=== PATIENT | male | born 1995 | race Caucasian/White ===

== ENCOUNTER 2022-08-21 13:00 | Emergency (ER) | payer OTHER ==
[~2022-08-21] VITALS: Ht 175.3 cm; Wt 77.3 kg
[2022-08-21 13:18] VITALS: BP 127/71
[2022-08-21 20:34] LABS: COVID AG,FIA SOURCE NASOPHARYNGEAL
[2022-08-21 21:19] LABS: INFLUENZA TYPE A NEGATIVE FOR TYPE A (NEGATIVE); INFLUENZA TYPE B NEGATIVE FOR TYPE B (NEGATIVE)
[2022-08-21] MEDS ORDERED: IBUP-1492 PO (21:47)
[2022-08-21] MEDS ORDERED: AMOX500C2 PO (21:50)
== END 2022-08-21 22:17 | disposition home or self-care (01) ==
LOC: EMS 13:14
DX: H66.91 Otitis media, unspecified, right ear (principal); Z20.822 Contact with and (suspected) exposure to COVID-19
CPT/HCPCS: 87804; 99283